=== PATIENT | female | born 1995 | race Caucasian/White ===

== ENCOUNTER 2018-04-11 09:32 | Emergency (ER) | payer BC ==
[~2018-04-11] VITALS: Ht 175.3 cm; Wt 63.5 kg
[~2018-04-11 09:32] MED LIST: AMOX500C2 PO; CODE118S2 PO; FRS325T PO; HYDR-3714 PO; HYDR-707 PO; HYDR1TAB PO; IBP600T1 PO; OXYC-12 PO; PNV1CAPS13 PO
--- OUTSIDE RECORDS SUMMARY | 2018-04-11 09:38 | XMS REPORT ---
Author ASHLEY Gallo [facility] Address [address] [place], [place] [id number] Care Team Providers Care Ultrasound Applications Specialist Name Role Phone ASHLEY PETERSEN PCP Unavailable ASHLEY PETERSEN PreferredProvider Unavailable Allergies and Adverse Reactions Name Reaction Notes No known allergies Plan of Treatment Not available. Medications Active Name Start Date Estimated Completion Date SIG Comments Vyvanse 30 mg oral capsule 09/01/2017 10/01/2017 take 1 capsule (30 mg) by oral route once daily in the morning for 30 days Problem List Not available. Vital Signs Date Time BP-Sys(mm[Hg] BP-Natacha(mm[Hg]) HR(bpm) RR(rpm) Temp WT HT HC BMI BSA BMI Percentile O2 Sat(%) 09/01/2017 11:53:00 AM 110 mmHg 70 mmHg 78 bpm 16 rpm 97 F 146 lbs 69 in 21.56 kg/m2 1.80 m2 98 % 09/01/2017 11:44:00 AM 110 mmHg 70 mmHg 78 bpm 16 rpm 97.9 F 146 lbs 69 in 21.5602 kg/m 1.7956 m 98 % Social History Name Description Comments Uses seatbelts Tobacco Alcohol Light History of Procedures Not available. Results Summary Not available. History Of Immunizations Not available. History of Past Illness Name Date of Onset Comments NO SIGNIFICANT MEDICAL HX GIVEN ADD (attention deficit disorder) Sep 01 2017 11:52AM Severe Chronic Recurrent Concentration deficit Sep 01 2017 11:52AM Payers Insurance Name Company Name Plan Name Plan Number Policy Number Policy Group Number [id number] History of Encounters Visit Date Visit Type Provider 09/01/2017 Office visit ASHLEY PANTOJA
--- OUTSIDE RECORDS SUMMARY | 2018-04-11 09:38 | XMS REPORT | Continuity of Care Document ---
Author Author [facility] Organization [facility] Address Unknown Phone Unavailable Allergies Active Description Code Type Severity Reaction Onset Reported/Identified Relationship to Patient Clinical Status Yes No Known Drug Allergies [id number] Drug Allergy Mild N/A 03/27/2009 Medications There is no data. Problems Date Dx Coded Attending Type Code Diagnosis Diagnosed By 06/04/2009 CA BOLAÑOS DDS, V V03.89 MENINGOCOCCAL, OTHER SPECIFIED SINGLE BACTERIAL DISEASE 06/04/2009 CA BOLAÑOS DDS V V06.5 DT, TETANUS-DIPHTHERIA [Td] ,TDAP 06/04/2009 CA BOLAÑOS DDS, V V20.2 Preventive Medicine New Patient Evaluation Childhood 5-11 06/24/2014 RUKHSANA GUERRA MD Ot 525.9 DENTAL DISORDER NOS 06/24/2014 RUKHSANA GUERRA MD Ot 873.63 TOOTH (BROKEN) (FRACTURED) (DUE TO TRAUM 08/28/2014 RENE PERLA MD Ot 465.9 ACUTE URI NOS 08/28/2014 RENE PERLA MD Ot 786.2 COUGH 08/28/2014 RENE PERLA MD Ot 786.52 PAINFUL RESPIRATION 08/29/2014 RUKHSANA GUERRA MD Ot 511.0 PLEURISY W/O EFFUS OR TB 08/29/2014 RUKHSANA GUERRA MD Ot 786.50 CHEST PAIN NOS 09/11/2017 Ot 649.63 UTERINE SIZE DATE DISCREPANCY, ANTEPARTU Procedures There is no data. Results Test Result Range CBC With Differential/Platelet - 11/11/16 10:33 WBC 7.8 x10E3/uL 3.4-10.8 RBC 4.44 x10E6/uL 3.77-5.28 Hemoglobin 13.4 g/dL 11.1-15.9 Hematocrit 40.8 % 34.0-46.6 MCV 92 fL 79-97 MCH 30.2 pg 26.6-33.0 MCHC 32.8 g/dL 31.5-35.7 RDW 13.7 % 12.3-15.4 Platelets 210 x10E3/uL 150-379 Neutrophils 59 % Lymphs 33 % Monocytes 7 % Eos 1 % Basos 0 % Neutrophils (Absolute) 4.6 x10E3/uL 1.4-7.0 Lymphs (Absolute) 2.6 x10E3/uL 0.7-3.1 Monocytes(Absolute) 0.5 x10E3/uL 0.1-0.9 Eos (Absolute) 0.1 x10E3/uL 0.0-0.4 Baso (Absolute) 0.0 x10E3/uL 0.0-0.2 Immature Granulocytes 0 % Immature Grans (Abs) 0.0 x10E3/uL 0.0-0.1 Comp. Metabolic Panel (14) - 11/11/16 10:33 Glucose, Serum 94 mg/dL 65-99 BUN 14 mg/dL 6-20 Creatinine, Serum 0.63 mg/dL 0.57-1.00 eGFR If NonAfricn Am 129 mL/min/1.73 >59 eGFR If Africn Am 148 mL/min/1.73 >59 BUN/Creatinine Ratio 22 8-20 Sodium, Serum 141 mmol/L 134-144 Potassium, Serum 4.2 mmol/L 3.5-5.2 Chloride, Serum 101 mmol/L 96-106 Carbon Dioxide, Total 25 mmol/L 18-29 Calcium, Serum 9.9 mg/dL 8.7-10.2 Protein, Total, Serum 7.0 g/dL 6.0-8.5 Albumin, Serum 4.7 g/dL 3.5-5.5 Globulin, Total 2.3 g/dL 1.5-4.5 A/G Ratio 2.0 1.1-2.5 Bilirubin, Total 0.4 mg/dL 0.0-1.2 Alkaline Phosphatase, S 46 IU/L 39-117 AST (SGOT) 17 IU/L 0-40 ALT (SGPT) 17 IU/L 0-32 Lipid Panel - 11/11/16 10:33 Cholesterol, Total 184 mg/dL 100-199 Triglycerides 87 mg/dL 0-149 HDL Cholesterol 67 mg/dL >39 VLDL Cholesterol Jose 17 mg/dL 5-40 LDL Cholesterol Calc 100 mg/dL 0-99 Hemoglobin A1c - 11/11/16 10:33 Hemoglobin A1c 5.5 % 4.8-5.6 Thyroid Norton Profile - 11/11/16 10:33 TSH 1.580 uIU/mL 0.450-4.500 CBC - 03/20/18 11:45 WHITE BLOOD CELL COUNT 9.7 Thousand/uL 3.8-10.8 RED BLOOD CELL COUNT 4.51 Million/uL 3.80-5.10 HEMOGLOBIN 14.0 g/dL 11.7-15.5 HEMATOCRIT 41.2 % 35.0-45.0 MCV 91.4 fL 80.0-100.0 MCH 31.0 pg 27.0-33.0 MCHC 34.0 g/dL 32.0-36.0 RDW 13.1 % 11.0-15.0 PLATELET COUNT 209 Thousand/uL 140-400 MPV 12.6 fL 7.5-12.5 ABSOLUTE NEUTROPHILS 7139 cells/uL 2115-7822 ABSOLUTE LYMPHOCYTES 1959 cells/uL 850-3900 ABSOLUTE MONOCYTES 534 cells/uL 200-950 ABSOLUTE EOSINOPHILS 39 cells/uL 15-500 ABSOLUTE BASOPHILS 29 cells/uL 0-200 NEUTROPHILS 73.6 % NRG LYMPHOCYTES 20.2 % NRG MONOCYTES 5.5 % NRG EOSINOPHILS 0.4 % NRG BASOPHILS 0.3 % NRG THYROID ANALYZER - 03/20/18 11:45 TSH 3.99 mIU/L NRG Encounters ACCT No. Visit Date/Time Discharge Status Pt. Type Provider Facility Loc./Unit Complaint [id number] 08/29/2014 09:14:00 08/29/2014 11:09:00 DIS Emergency RUKHSANA GUERRA MD [facility] ER BACK/RIB PAIN [id number] 08/28/2014 08:21:00 08/28/2014 10:17:00 DIS Emergency RENE PERLA MD [facility] ER COUGH/CONGESTION BACK/RIB PAIN [id number] 06/24/2014 02:44:00 06/24/2014 03:11:00 DIS Emergency RUKHSANA GUERRA MD [facility] ER DENTAL PAIN [id number] 06/18/2012 10:05:00 Document Registration [id number] 09/01/2017 11:40:53 09/01/2017 23:59:59 CLS Outpatient ASHLEY PETERSEN [id number] 02/05/2013 13:09:00 02/05/2013 23:59:59 CLS Outpatient CA BOLAÑOS DDS, V [id number] 11/12/2016 13:05:00 Document Registration [id number] 03/20/2018 11:00:00 03/20/2018 23:59:59 CLS Outpatient LAKESHIA ANN LAC [facility] [place] [id number] 03/20/2018 11:00:00 Document Registration
[2018-04-11] MEDS ORDERED: NS IV 500 ML 500 ML ONE (09:41)
[2018-04-11] MEDS ORDERED: NS IV 500 ML 500 ML IV ONE (09:42)
[2018-04-11] MEDS ORDERED: MIDAZOLAM 5 MG/5 ML (VERSED) VIAL IVP ONE (09:45)
[2018-04-11] MEDS ORDERED: fentaNYL INJECTION 100 MCG/2 ML AMP IVP PRN (09:45)
[2018-04-11] MEDS ORDERED: ONDANSETRON 4 MG/2 ML (SDV) Z0FRAN IVP ONE (09:45)
--- NOTE | 2018-04-11 09:52 | ED Upper Extremity ---
General Stated Complaint: DISLOCATED LT SHOULDER Source: patient Exam Limitations: no limitations (NAHUN GASPAR) History of Present Illness Date Seen by Provider: Apr 11, 2018 Initial Comments Patient is a 23-year-old female who presents to the emergency room with a dislocated shoulder. She reports that her left shoulder popped out when she was working out today. She says this is her fourth time she dislocated her left shoulder. She has normal pulses and sensation in the left hand. Onset: just prior to arrival Pain/Injury Location: left shoulder Method of Injury: sports injury Modifying Factors: Improves With Movement (NAHUN GASPAR) Time Seen by Provider: 09:30 (RUKHSANA GUERRA MD) Allergies and Home Medications Allergies Coded Allergies: No Known Drug Allergies (Unverified , 03/27/09) Patient Home Medication List Home Medication List Reviewed: Yes (NAHUN GASPAR) Constitutional: see HPI; No chills EENTM: see HPI; No ear discharge Respiratory: see HPI; No cough Cardiovascular: see HPI; No chest pain Gastrointestinal: no symptoms reported Genitourinary: no symptoms reported Musculoskeletal: see HPI, joint pain (left shoulder) Skin: see HPI; No change in color Psychiatric/Neurological: See HPI; Denies Anxiety, Denies Depressed (NAHUN GASPAR) Past Lphcbuo-Rilcuu-Mzrpql Hx Past Med/Social Hx: Reviewed Nursing Past Med/Soc Hx (NAHUN GASPAR) Immunizations Up To Date Tetanus Booster (TDap): Less than 5yrs PED Vaccines UTD: Yes (NAHUN GASPAR) Past Medical History Tonsillectomy Reproductive Disorders: No Adverse Reaction/Blood Tranf: No (NAHUN GASPAR) Family Medical History Reviewed Nursing Family Hx (NAHUN GASPAR) Physical Exam Vital Signs Vital Signs - First Documented 04/11/18 04/11/18 09:32 09:58 Temp 97.5 Pulse 92 Resp 42 B/P (MAP) 128/107 (114) Pulse Ox 100 O2 Delivery Nasal Cannula O2 Flow Rate 2.00 (RUKHSANA GUERRA MD) Vital Signs Capillary Refill : (NAHUN GASPAR STUDENT) General Appearance: WD/WN, no apparent distress HEENT: normal ENT inspection, TMs normal Neck: full range of motion, supple Cardiovascular: regular rate, rhythm, no edema Respiratory: lungs clear; No normal breath sounds Elbow/Forearm: Left, deformity (there appears to be a left shoulder anterior dislocation. The patient's pulses remain intact and normal sensation of the distal extremity.), limited ROM, pain Wrist: Yes normal inspection, Yes non-tender, Yes no evidence of injury Hand: normal inspection, non-tender Neurologic/Tendon: normal sensation (NAHUN GASPAR STUDENT) Procedures/Interventions Procedure: reduction of dislocated shoulder Patient Education: Explained Benefits, Explained Risks, Pt. Ack. Understanding Agreement on procedure with pt: Yes Breath Sounds per Auscultation: Clear Heart Sounds per Auscultation: Regular Airway Exam: Mouth opens >2 fingers, Neck Full Range of Motion, Visulation of Uvula (O Celia dried) Sedation Adminstration Time: 09:59 (NAHUN GASPAR STUDENT) Splinting and Joint Reduction : Pre-Proc Neuro Vasc Exam: normal Post-Proc Neuro Vasc Exam: normal Joint Reduction Site: shoulder (L) Reduction Attempts: 1 Pre-Procedure NV Exam: Yes post joint reduction film: joint reduced Progress The patient was given 100 micrograms of fentanyl on arrival to ED. At 0959 2.5 milligrams of Versed and 50 g of fentanyl were administered. The patient had minimal effects from the first dose of Versed and additional 2.5 mg of Versed were given the patient and relaxed enough and with minimal manipulation the shoulder reduced back in the socket and a medium-sized shoulder immobilizer was applied and post x-ray films confirmed that the shoulder was in place. Immobilizers: Medium Shoulder (NAHUN GASPAR STUDENT) Splinting and Joint Reduction : Arm Sling: Medium (shoulder immobilizer) (RUKHSANA GUERRA MD) Progress/Results/Core Measures Results/Orders My Orders Orders - RUKHSANA GUERRA MD Fentanyl Injection (Sublimaze Injection (04/11/18 09:45) Midazolam Injection (Versed Injection) (04/11/18 09:45) Ondansetron Injection (Zofran Injectio (04/11/18 09:45) Saline Lock/Iv-Start (04/11/18 09:42) Ns Iv 500 Ml (Sodium Chloride 0.9%) (04/11/18 09:42) Ns Iv 500 Ml (Sodium Chloride 0.9%) (04/11/18 09:41) Shoulder, Left, 2 Views (04/11/18 09:56) Shoulder, Left, 2 Views (04/11/18 10:08) (RUKHSANA GUERRA MD) Vital Signs/I&O 04/11/18 04/11/18 09:32 09:58 Temp 97.5 Pulse 92 Resp 42 B/P (MAP) 128/107 (114) Pulse Ox 100 O2 Delivery Nasal Cannula O2 Flow Rate 2.00 (RUKHSANA GUERRA MD) Progress Progress Note : Progress Note I have seen and evaluated the patient and agree with above except as indicated. I have directed the plan of care. Patient's here with left shoulder dislocation. She reports this is her fifth shoulder dislocation on that side. She was told previously that she had a labrum tear. She has not had any surgeries for this. Dislocation occurred while working out at the gym and she was doing chest fly lifting and her shoulder popped out. Feels like the shoulder is in the front. Denies loss of sensation distally. On exam, shoulder cavity is empty and humeral head is palpable anterior and below the shoulder on the left. Distal circulation is intact and equal with other side on radial pulses. 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 We did discuss options with the patient and she elected to proceed with reduction with sedation. Patient did receive 100 g of fentanyl prior to procedure. During procedure, patient received 50 g of fentanyl and total dose of 5 mg of Versed. Shoulder reduced easily and patient was placed in an immobilizer. Pre-and post films of the shoulder were obtained. Patient tolerated procedure well with no complications. I was present for the entire portion of the procedure and performed the reduction. 1100: Patient is much improved and recovered well from moderate sedation. Discharged home with return precautions. Patient verbalize understanding instructions and agreement with plan. (RUKHSANA GUERRA MD) Diagnostic Imaging Diagonstic Imaging: Xray Plain Films/CT/US/NM/MRI: other Comments [facility]. [place], [place] NAME: GARFIELDLUIS CARLOSLILIANMARIA GUADALUPE LYNN Charo [facility] REC#: [id number] PT STATUS: REG ER : 1995 PHYSICIAN: RUKHSANA GUERRA MD ADMIT DATE: 04/11/18/ER Draft Date of Exam:04/11/18 SHOULDER, LEFT, 2 VIEWS INDICATION: Left shoulder popped out of place. TIME OF EXAMINATION: 09:51 a.m. FINDINGS: Two views of the left shoulder demonstrate an anterior shoulder dislocation. The humerus is subcoracoid in location. No fracture seen. Acromioclavicular alignment is normal. IMPRESSION: Left anterior shoulder dislocation. Dictated on workstation # [id number] Dict: 04/11/18 1003 Trans: 04/11/18 1006 [facility] [id number] Interpreted by: ALLIE WOOD MD Electronically signed by: Glo Imaging: Xray Plain Films/CT/US/NM/MRI: other Comments NAME: MARIA GUADALUPE GARCIA MED REC#: [id number] PT STATUS: REG ER : 1995 PHYSICIAN: RUKHSANA GUERRA MD ADMIT DATE: 04/11/18/ER Signed Date of Exam: 04/11/18 SHOULDER, LEFT, 2 VIEWS INDICATION: Postreduction. COMPARISON: 04/11/2018 at 09:51 a.m. TIME OF EXAMINATION: 04/11/2018 at 10:25 a.m. FINDINGS: Two views of the left shoulder are obtained. There has been reduction of the previously seen anterior dislocation. Alignment at the glenohumeral joint now appears anatomic. No discrete fracture is seen. The acromioclavicular joint appears unremarkable. IMPRESSION: Satisfactory postreduction films of the left shoulder as described. Dictated by: Dictated on workstation # [id number] Dict: 04/11/18 1034 Trans: 04/11/18 1050 Interpreted by: FRANSISCA SOUSA DO Electronically signed by: FRANSISCA SOUSA DO 04/11/18 1050 (RUKHSANA GUERRA MD) Departure Impression Primary Impression: Recurrent dislocation, left shoulder Disposition: 01 HOME, SELF-CARE Condition: Improved Departure-Patient Inst. Decision time for Depature: 10:34 (RUKHSANA GUERRA MD) Referrals: WEST CACERES MD (PCP/Family) Primary Care Physician WILLARD SIMMONS ROBERT F DO ZAFUTA, MICHAEL P MD Patient Instructions: Shoulder Dislocation (DC) Add. Discharge Instructions: Wear the shoulder immobilizer at all times for the next one to 2 weeks unless otherwise directed. Follow-up with an orthopedic surgeon listed or of your choice for recheck and further evaluation as needed.. Return back to the emergency room for worse pain, weakness, numbness, repeat dislocation or other concerns as needed. You may take ibuprofen 600 mg every 8 hours as needed for pain. You may take Tylenol/acetaminophen 1000 mg every 8 hours as needed for pain. NAHUN GASPAR STUDENT Apr 11, 2018 09:52 RUKHSANA GUERRA MD Apr 11, 2018 10:36
--- NOTE | 2018-04-11 10:07 | Diagnostic Imaging Report ---
INDICATION: Left shoulder popped out of place. TIME OF EXAMINATION: 09:51 a.m. FINDINGS: Two views of the left shoulder demonstrate an anterior shoulder dislocation. The humerus is subcoracoid in location. No fracture seen. Acromioclavicular alignment is normal. IMPRESSION: Left anterior shoulder dislocation. Dictated by: Dictated on workstation # [id number]
[2018-04-11] MEDS ORDERED: MINOCYCLINE (10:33)
[2018-04-11] MEDS ORDERED: ETHI1TAB16 (10:33)
[2018-04-11] MEDS ORDERED: DEXT20TA8 (10:33)
--- NOTE | 2018-04-11 10:44 | Diagnostic Imaging Report ---
INDICATION: Postreduction. COMPARISON: 04/11/2018 at 09:51 a.m. TIME OF EXAMINATION: 04/11/2018 at 10:25 a.m. FINDINGS: Two views of the left shoulder are obtained. There has been reduction of the previously seen anterior dislocation. Alignment at the glenohumeral joint now appears anatomic. No discrete fracture is seen. The acromioclavicular joint appears unremarkable. IMPRESSION: Satisfactory postreduction films of the left shoulder as described. Dictated by: Dictated on workstation # [id number]
[2018-04-11 11:13] VITALS: BP 130/87
[2018-04-11] MEDS ORDERED: MIDAZOLAM 2 MG/2 ML (VERSED) VIAL IV ONE (20:45)
[2018-04-11] MEDS ORDERED: fentaNYL INJECTION 100 MCG/2 ML AMP IVP ONE ×3 (20:45)
== END 2018-04-11 11:13 | disposition home or self-care (01) ==
LOC: EDUNIT# 09:32 → ER 09:34
DX: M24.412 Recurrent dislocation, left shoulder (principal); X50.0XXA Overexertion from strenuous movement or load, initial encounter
CPT/HCPCS: 23650; 73030; 93041; 96361; 96374

== ENCOUNTER → 2019-04-01 | Outpatient (CLI) | payer BC, OTHER ==
[~2019-04-01] MED LIST changes: +DEXT20TA8; +ETHI1TAB16; +MINOCYCLINE
== END ==
LOC: ORTHO 11:48
PROVIDERS: ATTEND Orthopaedic Surgery
DX: M24.412 Recurrent dislocation, left shoulder (principal)
CPT/HCPCS: 99203

== ENCOUNTER → 2021-08-06 | Outpatient (CLI) | payer BC, OTHER ==
--- NOTE | 2021-08-06 15:42 | Diagnostic Imaging Report ---
INDICATION: survey. TECHNIQUE: Multiple real-time grayscale images were obtained over the gravid uterus. COMPARISON: None FINDINGS: There is a single live fetus in the a cephalic presentation. heart rate was recorded at 153 bpm. Placenta is anterior. Amniotic fluid index is 17 cm. Cervical length is 6.7 cm. kidneys, bladder and stomach are unremarkable. brain is unremarkable. There is a 4 chamber heart. There is a three-vessel cord with normal insertion. spine is unremarkable. face and profile images are somewhat limited due to position. Biometrical measurements are as follows: Biparietal 7.72 cm, age 31 weeks 0 days. Head circumference 29.10 cm, age 32 weeks 1 days. Abdominal circumference 24.69 cm, age 29 weeks 0 days. Femur length 5.53 cm, age 29 weeks 2 days. Sonographic estimate age: 30 weeks 3 days. Sonographic estimated date of delivery: 10/12/2021. Estimated Weight: 1394 gm (+/- 204 gm). LMP percentile: 17%. heart rate: 153 beats per minute. number: 1 of 1. IMPRESSION: Single live IUP approximately 30 weeks 3 days gestational age with estimated date of confinement sonographically of 10/12/2021. No complicating features are detected. Dictated by: Dictated on workstation # [id number]
== END ==
LOC: RAD 10:00
PROVIDERS: ATTEND Family Medicine
DX: Z34.93 Encounter for supervision of normal pregnancy, unspecified, third trimester (principal); Z3A.30 30 weeks gestation of pregnancy
CPT/HCPCS: 76805

== ENCOUNTER 2021-10-13 18:51 | Inpatient (IN) | payer SELFPAY ==
[2021-10-13] VITALS (8 sets, daily range): BP systolic 120–143; BP diastolic 79–88
[~2021-10-13] VITALS: Ht 175.3 cm; Wt 84.6 kg
[2021-10-13] MEDS ORDERED: AMPICILLIN FOR IV USE 2,000 MG in NS (IVPB) 50 ML IV SCH (19:50)
[2021-10-13] MEDS ORDERED: NS IV 1000 ML 0 ML ONE (19:58)
[2021-10-13] MEDS ORDERED: D5 LR IV SOLUTION 1,000 ML IV ONE (19:58)
[2021-10-13] MEDS ORDERED: AMPICILLIN 2,000 MG/14.8 ML (IV USE) ONE (19:58)
[2021-10-13] MEDS ORDERED: NS (IVPB) 50 ML ONE (19:58)
[2021-10-13] MEDS ORDERED: BUTORPHANOL INJ 2 MG/ML (STADOL) VIAL IV PRN (20:00)
[2021-10-13] MEDS ORDERED: ZOLPIDEM 5 MG (AMBIEN) TAB PO PRN (20:00)
[2021-10-13] MEDS ORDERED: TERBUTALINE INJ 1 MG/ML (BRETHINE) AMP SC PRN (20:00)
[2021-10-13] MEDS ORDERED: MINERAL OIL CONCENTRATE 99.9% 15 ML UDC TOP PRN (20:00)
[2021-10-13 20:04] LABS: BILIRUBIN,URINE NEGATIVE (NEGATIVE); CLARITY,URINE CLEAR; COLOR,URINE YELLOW; GLUCOSE, URINE (UA) NEGATIVE (NEGATIVE); KETONES,URINE NEGATIVE (NEGATIVE); LEUKOCYTE ESTERASE ,URINE 1+ (NEGATIVE); NITRITE,URINE NEGATIVE (NEGATIVE); PROTEIN,URINE NEGATIVE (NEGATIVE)
[2021-10-13 20:05] LABS: BASOPHILS % (AUTO) 0 % (0-10); EOSINOPHILS # (AUTO) 0.1 10^3/uL (0.0-0.3); EOSINOPHILS % (AUTO) 1 % (0-10); HEMATOCRIT 36 % (35-52); HEMOGLOBIN 12.3 g/dL (11.5-16.0); LYMPHOCYTES # (AUTO) 2.3 10^3/uL (1.0-4.0); LYMPHOCYTES % (AUTO) 21 % (12-44); MEAN CORPUSCULAR HEMOGLOBIN 31 pg (25-34); MEAN CORPUSCULAR HGB CONC 34 g/dL (32-36); MEAN CORPUSCULAR VOLUME 91 fL (80-99); MEAN PLATELET VOLUME 12.6 fL (9.0-12.2); MONOCYTES # (AUTO) 0.6 10^3/uL (0.0-1.0); MONOCYTES % (AUTO) 6 % (0-12); NEUTROPHILS # (AUTO) 7.5 10^3/uL (1.8-7.8); NEUTROPHILS % (AUTO) 71 % (42-75); PLATELET COUNT 165 10^3/uL (130-400); WHITE BLOOD COUNT 10.6 10^3/uL (4.3-11.0)
[2021-10-13] MEDS: D5 LR IV SOLUTION 1,000 ML IV SCH (20:10)
[2021-10-13 20:12] LABS: BACTERIA,URINE TRACE /HPF; WBC,URINE 0-2 /HPF
[2021-10-13] MEDS: LACTATED RINGERS 1,000 ML IV SCH (20:13)
[2021-10-13] MEDS: CATHETER FLUSH 10 ML SYR IV SCH (22:35)
[2021-10-14] VITALS (26 sets, daily range): BP systolic 102–147; BP diastolic 72–98
[2021-10-14] MEDS: AMPICILLIN FOR IV USE 1,000 MG in NS (IVPB) 50 ML IV SCH ×2 (00:09→04:06)
[2021-10-14] MEDS: CATHETER FLUSH 10 ML SYR IV SCH ×5 (05:14→21:05)
[2021-10-14] MEDS: D5 LR IV SOLUTION 1,000 ML IV SCH ×3 (05:48→21:04)
[2021-10-14] MEDS ORDERED: CITRIC ACID/SOB CIT (BICITRA) 30 ML UDC ONE (06:38)
[2021-10-14] MEDS ORDERED: FAMOTIDINE 20MG/2ML IV (PEPCID) ONE (06:38)
[2021-10-14] MEDS ORDERED: METOCLOPRAMIDE INJ 10 MG/2 ML (REGLAN) ONE (06:38)
[2021-10-14] MEDS ORDERED: CATHETER FLUSH 10 ML SYR IV PRN (06:40)
--- NOTE | 2021-10-14 06:50 | History & Physical-OB ---
OB - Chief Complaint & HPI Date/Time Date of Admission: Date of Admission: Oct 13, 2021 at 18:51 Date seen by a Provider: Oct 14, 2021 Time Seen by a Provider: 06:30 Chief Complaint/History OB-Reason for Admission/Chief: Induction of Labor Hx : 2 Hx Para: 1 Expected Date of Delivery: Oct 14, 2021 Gestational Age in Weeks: 39 Gestational Age in Days: 6 Admission Nurse Assessment Rev: Yes History of Labs GBS positive Allergies and Home Medications Allergies Coded Allergies: No Known Drug Allergies (Unverified , 03/27/09) Patient Home Medication List Home Medication List Reviewed: Yes Dextroamphetamine/Amphetamine (Amphetamine Salts 20 mg Tablet) 20 Mg Tablet, (Reported) Entered as Reported by: NATALIE GASPAR on 04/11/18 1033 Ethinyl Estradiol/Drospirenone (Gianvi 3 mg-0.02 mg Tablet) 1 Each Tablet, (Reported) Entered as Reported by: NATALIE GASPAR on 04/11/18 1033 [Minocycline] , (Reported) Entered as Reported by: NATALIE GASPAR on 04/11/18 1033 OB - History Hx of Present Care: Yes Ultrasounds: Normal mid trimester US Obstetrical Complications: None Medical Complications: None Obstetrical History Hx Termination: No Hx Multiple Gestation: No Hx Stillbirth: No Hx Complication: No Hx Induced Hypertens: No Hx Maternal Gestational Diabet: No Delivery History Hx Dystocia: No Hx Large For Gestational Age I: No Hx Small for Gestational Age I: No Hx Section: No Hx Vaginal Delivery Post C-Sec: No Hx Blood Disorders: No Adverse Rxn to Tranfusion: No Patient Past Medical History no chronic medical problems Immunizations Influenza Vaccine Up-to-Date: Yes; Up-to-Date First/Initial COVID19 Vaccine: 08/10/21 Second COVID19 Vaccination: 08/31/21 COVID19 Vaccine [employer]: [employer] Hepatitis A: Yes Hepatitis B: Yes Tetanus Booster (TDap): Less than 5yrs OB - Admission Exam Physical Exam Vitals: Vital Signs 10/14/21 10/14/21 10/14/21 01:40 03:10 03:40 Temp 36.6 Pulse 64 Resp 18 B/P (MAP) 131/81 (98) Pulse Ox 98 O2 Delivery Room Air HEENT: Moist Membranes Heart: Rhythm Normal Lungs: Clear Abdomen: Gravid Cervical Dilatation: 1cm (on presentation) Effacement: 50% Station: -3 Membranes: Intact (on admission) Heart Rate: 130's Short Term Variability: Present Contractions on Admission: None Intensity: Mild Silva Scoring Tool (Modified) Dilation (cm): 1-2cm (1) Effacement (%): 31-51% (1) Cervix Consistency: Medium(1) Cervix Position: Posterior (0) Add 1 point for: Each previous vaginal delivery (1) Silva Score: 4 Labs Laboratory Tests Test 10/13/21 19:00 10/13/21 19:15 Range/Units Urine Color YELLOW Urine Clarity CLEAR Urine pH 7.0 5-9 Urine Specific [place] 1.015 L 1.016-1.022 Urine Protein NEGATIVE NEGATIVE Urine Glucose (UA) NEGATIVE NEGATIVE Urine Ketones NEGATIVE NEGATIVE Urine Nitrite NEGATIVE NEGATIVE Urine Bilirubin NEGATIVE NEGATIVE Urine Urobilinogen 0.2 < = 1.0 MG/DL Urine Leukocyte Esterase 1+ H NEGATIVE Urine RBC (Auto) NEGATIVE NEGATIVE Urine RBC NONE /HPF Urine WBC 0-2 /HPF Urine Squamous Epithelial Cells 2-5 /HPF Urine Crystals NONE /LPF Urine Bacteria TRACE /HPF Urine Casts NONE /LPF Urine Mucus NEGATIVE /LPF Urine Culture Indicated NO White Blood Count 10.6 4.3-11.0 10^3/uL Red Blood Count 3.95 3.80-5.11 10^6/uL Hemoglobin 12.3 11.5-16.0 g/dL Hematocrit 36 35-52 % Mean Corpuscular Volume 91 80-99 fL Mean Corpuscular Hemoglobin 31 25-34 pg Mean Corpuscular Hemoglobin Concent 34 32-36 g/dL Red Cell Distribution Width 13.2 10.0-14.5 % Platelet Count 165 130-400 10^3/uL Mean Platelet Volume 12.6 H 9.0-12.2 fL Immature Granulocyte % (Auto) 1 % Neutrophils (%) (Auto) 71 42-75 % Lymphocytes (%) (Auto) 21 12-44 % Monocytes (%) (Auto) 6 0-12 % Eosinophils (%) (Auto) 1 0-10 % Basophils (%) (Auto) 0 0-10 % Neutrophils # (Auto) 7.5 1.8-7.8 10^3/uL Lymphocytes # (Auto) 2.3 1.0-4.0 10^3/uL Monocytes # (Auto) 0.6 0.0-1.0 10^3/uL Eosinophils # (Auto) 0.1 0.0-0.3 10^3/uL Basophils # (Auto) 0.0 0.0-0.1 10^3/uL Immature Granulocyte # (Auto) 0.1 0.0-0.1 10^3/uL OB - Assessment/Plan/Diagnosis Assessment Assessment: induction of labor Admission Dx 1. IUP at term 39w6d on admit Admission Status: Inpatient Order (span 2 midnights) Reason for Inpatient Admission: L&D Plan Plan: Induction Induction Method: AROM Other Plan -after AROM, decel (60s for 5-6 min). No cord palpable at os. called for stat CS. Crew and Dr Reilly notified. Rate currently at 120 at 0650 WEST CACERES MD Oct 14, 2021 06:50
[2021-10-14] MEDS ORDERED: SUCCINYLCHOLINE INJ 100 MG/5 ML SYR/VIAL ONE (06:53)
[2021-10-14] MEDS ORDERED: LIDOCAINE PF 2% 5 ML (XYLOCAINE) VIAL ONE (06:53)
[2021-10-14] MEDS ORDERED: proPOfol 200 MG/20 ML (DIPRIVAN) VIAL IV ONE (06:53)
[2021-10-14] MEDS ORDERED: fentaNYL INJ 100 MCG/2 ML AMP ONE (06:54)
[2021-10-14] MEDS ORDERED: SEVOFLURANE (ULTANE) 15 ML INHAL SOLN ONE (07:46)
--- NOTE | 2021-10-14 07:48 | Diagnostic Imaging Report ---
INDICATION: Emergency . Instrument check. EXAMINATION: Abdomen 10/14/2021 FINDINGS: There is scattered air and stool throughout the colon to rectosigmoid. There is free air throughout the pelvis consistent with recent surgery. There are no radiopaque foreign bodies appreciated. No acute osseous abnormality. IMPRESSION: 1. Postoperative changes in the pelvis with no radiopaque foreign bodies appreciated. Dictated by: Dictated on workstation # [id number]
--- NOTE | 2021-10-14 07:50 | Progress Note ---
Standard Progress Note Progress Notes/Assess & Plan Date Seen by a Provider: Oct 14, 2021 Time Seen by a Provider: 06:45 Progress/Assessment & Plan I was contacted at [address] Ortiz needing an emergency delivery of via due to distress. Upon arrival at the hospital the patient had been taken back to OR, anesthesia was in the process of administering general, and she was being prepped. ASHLEY SUTHERLAND DO Oct 14, 2021 07:50
--- NOTE | 2021-10-14 07:51 | Discharge Inst-Women's Service ---
Discharge Inst-Women's Serv Depart Medication/Instructions New, Converted or Re-Newed RX: Transmitted to Pharmacy Final Diagnosis POD 2 PLTCS Problems Reviewed?: Yes Consults/Follow Up Additional Follow Up: Yes Orders/Referrals Dr. Reilly in 7-10 days, and Dr. Ortiz in 6 weeks Activity Activity: Activity as Tolerated Driving Instructions: No Driving for 1 Week NO SMOKING: NO SMOKING Nothing Inside Vagina: No Douching, No [place], No Tampons Diet Discharge Diet: No Restrictions Symptoms to Report to : Bleeding Excessive, Pain Increased, Fever Over 101 Degrees F, Vaginal Bleeding Increase, Questions/Concerns For Any Problems or Questions: Contact Your Physician Skin/Wound Care Infection Signs and Symptoms: Increased Redness, Foul Odor of Wound, Increased Drainage, Skin Itchy or Has a Rash, Increased Swelling, Temperature Above 101 F Stitches/Willy/Dermabond: Dermabond, Care of Stitches Bathing Instructions: ASHLEY Vega DO Oct 14, 2021 07:51
[2021-10-14] MEDS ORDERED: IBUP-844 PO (07:52)
[2021-10-14] MEDS ORDERED: DOCU100C37 PO (07:52)
[2021-10-14] MEDS ORDERED: ACHD5005 PO (07:52)
[2021-10-14] MEDS ORDERED: morphine INJ 10 MG/ML 1ML (SYR OR VIAL) ONE (07:58)
--- NOTE | 2021-10-14 07:59 | Anesthesia-General Post-Op ---
General Patient Condition Mental Status/LOC: Same as Preop Cardiovascular: Satisfactory Nausea/Vomiting: Absent Respiratory: Satisfactory Pain: Controlled Complications: Absent Post Op Complications Complications None Follow Up Care/Instructions Patient Instructions None needed. Anesthesia/Patient Condition Patient Condition Patient is doing well, no complaints, stable vital signs, no apparent adverse anesthesia problems. No complications reported per nursing. CHRISTI DALAL CRNA Oct 14, 2021 07:59
[2021-10-14] MEDS ORDERED: HYDROmorphone 2 MG/ML VIAL (DILAUDID) IV ONE ×2 (08:00→10:30)
[2021-10-14] MEDS ORDERED: LACTATED RINGERS 1,000 ML IV PRN ×2 (08:00)
[2021-10-14] MEDS ORDERED: FAMOTIDINE 20MG/2ML IV (PEPCID) IV ONE (08:00)
[2021-10-14] MEDS ORDERED: NALOXONE 0.4 MG/ML 1 ML (NARCAN) VIAL IV PRN (08:00)
[2021-10-14] MEDS ORDERED: MEPERIDINE (DEMEROL) INJ 50 MG/ML IVP ONE (08:00)
[2021-10-14] MEDS ORDERED: TETANUS,DIPTH,PERTUSS P/F (BOOSTRIX) 0.5 ML VIAL IM SCH (08:00)
[2021-10-14] MEDS ORDERED: morphine INJ 10 MG/ML 1ML (SYR OR VIAL) IVP ONE (08:00)
[2021-10-14] MEDS ORDERED: ONDANSETRON 4 MG/2 ML (SDV) Z0FRAN IVP PRN ×2 (08:00)
[2021-10-14] MEDS ORDERED: CITRIC ACID/SOB CIT (BICITRA) 30 ML UDC PO ONE (08:00)
[2021-10-14] MEDS ORDERED: METOCLOPRAMIDE INJ 10 MG/2 ML (REGLAN) IV ONE (08:00)
[2021-10-14] MEDS ORDERED: ceFAZolin 2 GM IV Premixed 50 ML IV ONE (08:00)
[2021-10-14] MEDS ORDERED: fentaNYL INJ 100 MCG/2 ML AMP IVP ONE (08:00)
[2021-10-14] MEDS ORDERED: PROMETHAZINE INJ 25 MG/ML (PHENERGAN) AMP IVP ONE (08:00)
[2021-10-14] MEDS ORDERED: MEASLES,MUMPS,RUBELLA 1 EA INJ SC SCH (08:00)
[2021-10-14] MEDS ORDERED: KETOROLAC 30 MG/ML VIAL ONE (08:03)
[2021-10-14] MEDS: KETOROLAC 30 MG/ML VIAL IV SCH ×3 (08:07→20:07)
[2021-10-14] MEDS ORDERED: HYDROmorphone 2 MG/ML VIAL (DILAUDID) ONE (08:13)
[2021-10-14] MEDS: LACTATED RINGERS 1,000 ML IV SCH (08:31)
[2021-10-14] MEDS: HYDROcodone/APAP 5 MG/325 MG (LORTAB) TAB PO PRN ×3 (09:17→21:18)
[2021-10-14] MEDS: OXYTOCIN PRE-MIX DRIP 500 ML IV SCH ×2 (10:00→15:00)
[2021-10-14] MEDS: DOCUSATE SODIUM 100 MG (COLACE) CAP PO SCH ×2 (10:00→21:05)
--- NOTE | 2021-10-14 10:08 | OPERATIVE REPORT ---
DATE OF SERVICE: PREOPERATIVE DIAGNOSES: 1. A 26-year-old G2, P1 at 40 weeks and 1 day gestation. 2. Acute distress and bradycardia. POSTOPERATIVE DIAGNOSES: 1. A 26-year-old G2, P1 at 40 weeks and 1 day gestation. 2. Acute distress and bradycardia. 3. Nuchal cord x1. PROCEDURE: Primary low transverse section. SURGEON: Eldon Sutherland DO BOTTLED BEVERAGE INSPECTOR: Dr. Shyam Ortiz, who was necessary for manipulation and retraction throughout the procedure. ANESTHESIA: General. ESTIMATED BLOOD LOSS: 400 mL. URINE OUTPUT: 200 mL clear at the end of the procedure. FLUIDS: 1000 mL lactated Ringer's solution. FINDINGS: A live male weighing 7 pounds 10 ounces, Apgars of 8 and 9. Grossly normal appearing uterus, bilateral fallopian tubes and ovaries. SPECIMEN SENT: Placenta. INDICATIONS FOR PROCEDURE: This patient was admitted by Dr. Ortiz last night for postdates induction of labor. She received misoprostol overnight and Dr. Ortiz ruptured her water this morning and had an acute drop in baby's heart rate into the 60s. This had sustained for about 3 to 4 minutes when he contacted me at home and had contacted operating room crew for emergent delivery. When I arrived, Dr. Ortiz had informed me that the heart rate had come back up; however, the patient was already in the operating room and anesthetic was in the process of being administered and the patient was being prepped, consent had already been obtained due to the emergent nature of this, we proceeded with delivery as the patient was agreeable to proceed and she was remote from delivery. Risks had been reviewed by the nursing staff prior to my arrival and consent had been obtained. Once anesthesia was administered, I am notified by anesthesia that is okay to proceed. A timeout had been performed before I started. OPERATIVE REPORT IN DETAIL: A Pfannenstiel skin incision was then made with a knife and carried down to underlying fascia using the knife, the fascial incision extended using blunt traction. This gives me access to the midline of the rectus muscles, which I entered bluntly and extended using blunt traction. I entered the peritoneum bluntly and extended using blunt traction. I then make a low transverse incision through the uterus until membranes were encountered, at which point I extended the uterine incision laterally using blunt traction. The infant was found in the vertex presentation. With gentle fundal pressure, the infant's head was elevated up the incision where the nares and oropharynx were bulb suctioned. Nuchal cord was reduced x1. Anterior and posterior shoulders were delivered. The was brought to the operative field where the cord doubly clamped and cut and infant was handed off to Dr. Ortiz, who was present for delivery. Cord blood was collected, 3-vessel cord with intact placenta was delivered spontaneously thereafter. IV Pitocin was initiated to facilitate uterine contraction. Uterine fundus confirmed by manual massage. I then placed an Lobo self-retaining ring retractor within the incision that I made, which offers excellent lateral sidewall retraction. I exteriorized the uterus and cleared the endometrial cavity of all endometrial clots and debris. I then proceeded with closing the uterine incision using 0 Vicryl suture in running locked fashion. Second layer of imbricating 0 Monocryl was placed. Excellent hemostasis was noted after doing this. I then placed the uterus back in the pelvis and copiously irrigated the pelvis using normal saline. Once again, there was no active bleeding noted from any of my dissection planes. I placed Interceed antiadhesive over my low transverse incision. I removed the Lobo ring retractor. I then proceeded with closing the peritoneum using 3-0 Vicryl suture in running fashion. The rectus muscles were reapproximated using 3-0 Vicryl suture in interrupted fashion. The fascia was reapproximated using 0 Vicryl suture in running fashion. The subcutaneous tissue was reapproximated using 3-0 plain interrupted subcutaneous stitch and skin reapproximated using 4-0 Monocryl running subcuticular. Dermabond was applied to incision and sterile dressing with adhesive white tape. The patient tolerated the procedure well and sent to recovery in stable condition. Lap and sponge counts were correct at the end of the procedure. Instrument counts correct as well. Two grams of Ancef given preoperatively for infection prophylaxis. Job ID: [id number] DocumentID: [id number] Dictated Date: 10/14/2021 07:57:51 Cotton Wringer Date: 10/14/2021 10:07:23 Dictated By: ELDON SUTHERLAND DO
[2021-10-15 00:06] VITALS: BP 136/79
[2021-10-15] MEDS: KETOROLAC 30 MG/ML VIAL IV SCH (02:22)
[2021-10-15] MEDS: CATHETER FLUSH 10 ML SYR IV SCH ×2 (02:22→05:25)
[2021-10-15 02:34] VITALS: BP 136/84
[2021-10-15] MEDS: D5 LR IV SOLUTION 1,000 ML IV SCH (04:10)
[2021-10-15] MEDS: HYDROcodone/APAP 5 MG/325 MG (LORTAB) TAB PO PRN ×2 (04:45→05:37)
[2021-10-15 05:57] LABS: HEMATOCRIT 28 % (35-52); HEMOGLOBIN 9.4 g/dL (11.5-16.0); MEAN CORPUSCULAR HEMOGLOBIN 31 pg (25-34); MEAN CORPUSCULAR HGB CONC 34 g/dL (32-36); MEAN CORPUSCULAR VOLUME 93 fL (80-99); MEAN PLATELET VOLUME 11.8 fL (9.0-12.2)
[2021-10-15 06:00] LABS: BASOPHILS % (AUTO) 0 % (0-10); EOSINOPHILS # (AUTO) 0.2 10^3/uL (0.0-0.3); EOSINOPHILS % (AUTO) 2 % (0-10); LYMPHOCYTES # (AUTO) 2.1 10^3/uL (1.0-4.0); LYMPHOCYTES % (AUTO) 24 % (12-44); MONOCYTES # (AUTO) 0.7 10^3/uL (0.0-1.0); MONOCYTES % (AUTO) 8 % (0-12); NEUTROPHILS # (AUTO) 5.7 10^3/uL (1.8-7.8); NEUTROPHILS % (AUTO) 66 % (42-75); PLATELET COUNT 129 10^3/uL (130-400); WHITE BLOOD COUNT 8.6 10^3/uL (4.3-11.0)
[2021-10-15] MEDS ORDERED: IBUPROFEN 600 MG (MOTRIN) TAB PO ONE (07:40)
[2021-10-15 07:43] VITALS: BP 124/78
--- NOTE | 2021-10-15 08:22 | Postpartum Progress Note ---
Note Note Day # 1 Subjective: Patient is without complaints. Ambulating, voiding. Tolerating a regular diet without nausea or vomiting. Normal lochia. Pain is well controlled with oral pain medications. Objective: Physical Exam: General - Alert and oriented, no apparent distress Abdomen - Soft, appropriately tender to palpation, non-distended, fundus firm at umbilicus Extremities - no edema, negative Slime's bilaterally Incision- c/d/i Assessment: POD 1 PLTCS Acute blood loss anemia Plan: Routine care. Encourage breast feeding. Encourage ambulation. Ferrous sulfate supplementation. Plan for discharge tomorrow Vitals - Labs Vital Signs - I&O Vital Signs Date Time Temp Pulse Resp B/P (MAP) Pulse Ox O2 Delivery O2 Flow Rate FiO2 10/15/21 07:43 36.9 82 16 124/78 (93) 98 Room Air 10/15/21 02:34 36.2 72 16 136/84 (101) 97 Room Air 10/15/21 00:06 36.5 72 16 136/79 (98) 98 Room Air 10/14/21 20:56 36.6 77 16 134/77 (96) 99 Room Air 10/14/21 15:27 36.9 79 16 131/79 (96) 98 Room Air 10/14/21 12:15 36.8 80 18 138/83 (101) 97 Room Air 10/14/21 10:03 36.9 88 18 139/86 (103) 97 Room Air 10/14/21 09:12 36.1 78 18 139/81 (100) 97 Room Air 10/14/21 08:53 Room Air 10/14/21 08:50 36.2 14 130/97 (108) 98 Room Air 10/14/21 08:40 14 132/95 (107) 98 OxyMask 2 10/14/21 08:30 14 147/93 (111) 99 OxyMask 2 10/14/21 08:30 OxyMask 2 I & O 10/15/21 06:59 Intake Total 3770 ml Output Total 1850 ml Balance 1920 ml Labs Laboratory Tests 10/15/21 05:11: White Blood Count 8.6, Red Blood Count 3.02L, Hemoglobin 9.4#L, Hematocrit 28L, Mean Corpuscular Volume 93, Mean Corpuscular Hemoglobin 31, Mean Corpuscular Hemoglobin Concent 34, Red Cell Distribution Width 13.5, Platelet Count 129L, Mean Platelet Volume 11.8, Immature Granulocyte % (Auto) 1, Neutrophils (%) (Auto) 66, Lymphocytes (%) (Auto) 24, Monocytes (%) (Auto) 8, Eosinophils (%) (Auto) 2, Basophils (%) (Auto) 0, Neutrophils # (Auto) 5.7, Lymphocytes # (Auto) 2.1, Monocytes # (Auto) 0.7, Eosinophils # (Auto) 0.2, Basophils # (Auto) 0.0, Immature Granulocyte # (Auto) 0.1, Percent Immature Platelet Fraction 6.6 ASHLEY SUTHERLAND DO Oct 15, 2021 08:22
[2021-10-15 11:44] VITALS: BP 127/80
[2021-10-15] MEDS ORDERED: IBUPROFEN 600 MG (MOTRIN) TAB PO SCH (12:00)
[2021-10-15] MEDS: DOCUSATE SODIUM 100 MG (COLACE) CAP PO SCH (14:38)
[2021-10-15 14:55] VITALS: BP 127/80
== END 2021-10-15 15:05 | disposition home or self-care (01) | DRG 787 ==
LOC: LDRP 18:51
PROVIDERS: ADMIT Family Medicine; ATTEND Family Medicine
PROC: 10D00Z1 Extraction of Products of Conception, Low, Open Approach (ICD-10-PCS; principal; 2021-10-14 06:54)
DX: O77.9 Labor and delivery complicated by fetal stress, unspecified (principal); D62 Acute posthemorrhagic anemia; O99.824 Streptococcus B carrier state complicating childbirth; Z3A.39 39 weeks gestation of pregnancy; Z37.0 Single live birth; O99.892 Other specified diseases and conditions complicating childbirth; R00.1 Bradycardia, unspecified; O90.81 Anemia of the puerperium
CPT/HCPCS: 36415; 74018; 81000; 85025; 86850; 86900; 86901; 94664

== ENCOUNTER → 2023-08-15 | Outpatient (CLI) | payer BC ==
[~2023-08-15] MED LIST changes: +ACHD5005 PO; +DOCU100C37 PO; +IBUP-844 PO
--- NOTE | 2023-08-15 13:23 | Diagnostic Imaging Report ---
PROCEDURE: US OB SINGLE FETUS <14 WKS. TECHNIQUE: Multiple real-time grayscale images were obtained over the gravid uterus in various projections. INDICATION: dating COMPARISON: None. TECHNIQUE: Transpelvic sonogram was performed. FINDINGS: There is a single, live intrauterine with a crown-rump length measuring 51.5 mm, which is consistent with a 11 week and 6 day fetus. heart rate was documented at 165 beats per minute. anatomy is not well seen at this early state of gestation. Amniotic fluid appears subjectively within normal limits. The placenta is noted along the left lateral wall extending inferiorly with potential placenta previa. Maternal ovaries are unable be visualized secondary to overlying bowel gas and gravid uterus. IMPRESSION: Single, live intrauterine at 11 weeks and 6 days. Estimated due date is 02/28/2024. The placenta is noted along the left lateral wall extending inferior to near the cervix. This could potentially relate to placenta previa, though this is not optimally visualized. This should be reevaluated on followup imaging at 18-20 weeks gestational age when a full anatomic survey should also be performed. Dictated by: Dictated on workstation # [id number]
== END ==
LOC: RAD 08:00
PROVIDERS: ATTEND Family Medicine
DX: Z36.87 Encounter for antenatal screening for uncertain dates (principal); Z3A.11 11 weeks gestation of pregnancy
CPT/HCPCS: 76801